=== PATIENT | male | born 1965 | race Caucasian/White ===

== ENCOUNTER 2020-01-24 11:06 | Outpatient (RCR) | payer OTHER, SELFPAY ==
[2020-01-24 11:30] VITALS: BP 144/99; PULSE 81; RESP 16; O2SAT 99; BMI 22.4
== END 2020-02-07 08:00 | disposition home or self-care (01) ==
PROVIDERS: PCP Family Medicine
DX: Z95.2 Presence of prosthetic heart valve (principal)
CPT/HCPCS: 93798

== ENCOUNTER 2020-04-27 16:05 | Outpatient (RCR) | payer OTHER, SELFPAY ==
[2020-02-02 13:26] LABS: INR 2.3; Prothrombin Time 22.9 Seconds (9.64-11.0)
[2020-02-09 16:05] LABS: INR 1.8; Prothrombin Time 18.3 Seconds (9.64-11.0)
[2020-02-16 16:02] LABS: INR 2.4; Prothrombin Time 24.5 Seconds (9.64-11.0)
[2020-03-24 15:59] LABS: INR 2.5; Prothrombin Time 25.5 Seconds (9.64-11.0)
[2020-04-27 16:30] LABS: INR 2.7; Prothrombin Time 27.2 Seconds (9.64-11.0)
== END 2020-05-02 23:59 | disposition home or self-care (01) ==
LOC: CHSLAB 16:05
PROVIDERS: PCP Family Medicine; Visit Provider Nurse Practitioner
DX: Z79.01 Long term (current) use of anticoagulants (principal)
CPT/HCPCS: 36415; 85610

== ENCOUNTER 2020-06-15 16:13 | Outpatient (RCR) | payer OTHER, SELFPAY ==
[2020-05-30 16:37] LABS: INR 1.9; Prothrombin Time 20.3 Seconds (9.50-12.10)
[2020-06-15 19:32] LABS: INR 1.7; Prothrombin Time 18.6 Seconds (9.50-12.10)
== END 2020-08-28 23:59 | disposition home or self-care (01) ==
LOC: CHSLAB 16:13
PROVIDERS: PCP Family Medicine; Visit Provider Nurse Practitioner
DX: Z79.01 Long term (current) use of anticoagulants (principal)
CPT/HCPCS: 36415; 85610

== ENCOUNTER 2020-08-23 16:02 | Outpatient (RCR) | payer OTHER, SELFPAY ==
[2020-07-01 17:33] LABS: INR 2.2; Prothrombin Time 22.9 Seconds (9.50-12.10)
[2020-07-17 15:53] LABS: INR 2.9; Prothrombin Time 30.6 Seconds (9.50-12.10)
[2020-08-23 16:21] LABS: INR 2.6; Prothrombin Time 26.1 Seconds (9.50-12.10)
== END 2020-09-29 23:59 | disposition home or self-care (01) ==
LOC: CHSLAB 16:02
PROVIDERS: PCP Nurse Practitioner; Visit Provider Nurse Practitioner
DX: Z79.01 Long term (current) use of anticoagulants (principal)
CPT/HCPCS: 36415; 85610

== ENCOUNTER 2020-12-22 11:40 | Outpatient (RCR) | payer OTHER, SELFPAY ==
[2020-10-02 13:39] LABS: INR 3.3; Prothrombin Time 32.9 Seconds (9.50-12.10)
[2020-11-13 16:24] LABS: INR 2.6; Prothrombin Time 26.7 Seconds (9.50-12.10)
[2020-12-22 12:12] LABS: INR 2.7; Prothrombin Time 27.3 Seconds (9.50-12.10)
== END 2020-12-31 23:59 | disposition home or self-care (01) ==
LOC: CHSLAB 11:40
PROVIDERS: PCP Family Medicine; Visit Provider Nurse Practitioner
DX: Z79.01 Long term (current) use of anticoagulants (principal)
CPT/HCPCS: 36415; 85610

== ENCOUNTER 2021-02-19 17:52 | Outpatient (RCR) | payer OTHER, SELFPAY ==
[2021-01-18 14:37] LABS: INR 2.6; Prothrombin Time 26.4 Seconds (9.50-12.10)
[2021-02-19 18:16] LABS: Prothrombin Time 30.3 Seconds (9.50-12.10)
== END 2021-04-18 23:59 | disposition home or self-care (01) ==
LOC: CHSLAB 17:52
PROVIDERS: PCP Nurse Practitioner; Visit Provider Nurse Practitioner
DX: Z79.01 Long term (current) use of anticoagulants (principal)
CPT/HCPCS: 36415; 85610

== ENCOUNTER 2021-06-14 13:18 | Outpatient (RCR) | payer OTHER, SELFPAY ==
--- NOTE | 2021-06-14 15:11 | PTOPEVAL ---
Thank you for referring Russ Lugo to [facility] [place][Note 2]. Please review, sign, date and return this plan of care RA. I agree with and certify that the following plan of care is medically necessary. 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 reports that he has been Query Text:As Reported By Patient/ performing a HEP for years. Family He report that his program has since become easy and is looking for suggestions on how to advance his current HEP to improve strength and the l.e. Prior Level of Function Activity Level (Last 3 Months) Occupation teacher Hand Dominance Right Activity of Daily Living Ability Independent Indoor/Home Mobility Independent Community Mobility Independent Stairs Ability Independent Functional Cognition (Planning, Shopping Independent , Taking Medications) Cooking Yes Cleaning Yes Laundry Yes Shopping Yes Driving Yes Pain Assessment Self Report Self Report Pain Level 0 Pain Score Pain Score 0: Self Report Interventions Used Interventions Used By Clinicians Activity or ADL's,Exercise Lower Extremity Range of Motion General Lower Extremity Range of Motion Gross Lower Extremity Range of Motion -right ankle dorsiflexion AROM Comments -10 degrees -right ankle dorsiflexion PROM -5 degrees -left ankle dorsiflexion AROM -3 degrees -left ankle dorsiflexion PROM 2 degrees -right ankle inversion AROM 29 degrees -left ankle inversion AROM 35 degrees -left ankle eversion AROM -5 degrees -right ankle eversion AROM -3 degrees Lower Extremity Muscle Strength Testing Hip Strength
== END 2021-06-14 13:59 | disposition home or self-care (01) ==
LOC: CHSPT 13:18
PROVIDERS: Visit Provider Nurse Practitioner
DX: M30.1 Polyarteritis with lung involvement [Churg-Strauss] (principal)
CPT/HCPCS: 97110; 97161

== ENCOUNTER 2021-06-19 16:32 | Outpatient (RCR) | payer OTHER, SELFPAY ==
[2021-04-20 14:17] LABS: INR 3.5; Prothrombin Time 35.1 Seconds (9.50-12.10)
[2021-05-01 17:31] LABS: INR 2.5; Prothrombin Time 25.2 Seconds (9.50-12.10)
[2021-05-23 13:34] LABS: INR 2.8; Prothrombin Time 28.2 Seconds (9.50-12.10)
[2021-06-08 16:25] LABS: INR 2.2; Prothrombin Time 22.4 Seconds (9.50-12.10)
[2021-06-19 16:56] LABS: INR 2.8; Prothrombin Time 28.8 Seconds (9.50-12.10)
== END 2021-07-19 23:59 | disposition home or self-care (01) ==
LOC: CHSLAB 16:32
PROVIDERS: PCP Family Medicine; Visit Provider Nurse Practitioner
DX: Z79.01 Long term (current) use of anticoagulants (principal)
CPT/HCPCS: 36415; 85610

== ENCOUNTER → 2021-07-16 11:25 | Outpatient (CLI) | payer OTHER, SELFPAY ==
--- NOTE | ~2021-07-16 | CT_ITS ---
EXAMINATION:CT diagnostic chest wo con DATE: 07/16/2021 11:41 INDICATION: Shortness breath. Wheezing. TECHNIQUE: Computed tomography (CT) of the chest was performed without intravenous contrast. Automate d exposure control and iterative reconstruction technique were employed. The dose-length product (DLP ) was 293.37 mGy-cm. COMPARISON: None. FINDINGS: The lungs demonstrate minimal atelectasis. Motion artifact is noted. A calcified left lung nodule and calcified mediastinal lymph nodes are consistent with old granulomatous disease. No pleura l effusion. The heart size is normal. There are changes of mitral valve replacement. There are stringer ry artery calcifications. No pericardial effusion. Calcifications in the spleen are consistent with o ld granulomatous disease. There is mild thoracic spondylosis and severe cervical spondylosis. IMPRESSION: 1. No etiology for the patient's symptoms. Reviewed, dictated and finalized at location A. TIC SURGERY ASSISTANT
== END ==
PROVIDERS: PCP Family Medicine; Visit Provider Family Medicine
DX: R06.2 Wheezing (principal)
CPT/HCPCS: 71250

== ENCOUNTER 2021-10-23 15:59 | Outpatient (RCR) | payer OTHER, SELFPAY ==
--- NOTE | 2021-10-23 17:03 | PTOPEVAL ---
Thank you for referring Russ Lugo to [facility].? The patient is scheduled to be seen for therapy? __1__x/week for 6 visits. Please review, sign, date and return this plan of care RA. I agree with and certify that the following plan of care is medically necessary. Referring Physician Date Admitting Provider: Attending Provider: Wilber Sandoval Referring Provider: *PT Outpatient Evaluation Start: 10/23/21 16:09 Freq: Status: Active Protocol: Document 10/23/21 16:09 SAMSON (Rec: 10/23/21 16:59 SAMSON [email or web address]) Therapy Assessment Status Assessment Status Assessment Status Evaluation Evaluation Information Problem Diagnosis back pain Onset 07/20/21 Subjective Information Pt. reports that he developed Query Text:As Reported By Patient/ a septic section of his Family verterbrae. He underwent MRI that revealed an abscess in the L5 verterbrae. He underwent surgery to help drain the abscess. He reports that he is feeling better since surgery. He reports that since surgery developed pain on the right side of the low back. He is taking pain medication 3x/day up to 4x/day . He reports that pain is increased with walking and standing. He reports that he can stand for about 30 minutes before having to sit. He states that he could stand for an hour or more before injuring himself. 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 He reports that his goal is to decrease his pain and be able to stand longer. Pain Assessment Timing of Pain Assessment Timing of Pain Assessment Pre-Treatment Pain Scale Pain Scale Used Numeric (1 - 10) Self Report Pain Assessment Lower Back Reported Pain Level 3 Pain Description Aching Pain Score Pain Score 3: Self Report Interventions Used Interventions Used By Clinicians Exercise Cervical and Lumbar ROM Lumbar ROM Lumbar Flexion Active Floor Query Text:Hands to: Lumbar Extension (0-40) 5 Query Text:Active i
== END 2021-12-04 10:05 | disposition home or self-care (01) ==
LOC: CHSPT 15:59
PROVIDERS: PCP Family Medicine
DX: M54.16 Radiculopathy, lumbar region (principal)
CPT/HCPCS: 97110; 97112; 97161; 97530

== ENCOUNTER 2022-05-07 11:07 | Outpatient (RCR) | payer OTHER, SELFPAY ==
--- NOTE | 2022-05-07 13:33 | PTOPEVAL1 ---
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 she reports overall the strength is getting better in both legs, but has weakness in the L ankle causing the foot to turn inward. he reports however, the drop foot is work on the R LE . he uses GRAFO braces bilaterally. the shoes the patient wears daily is customized on the L LE to provide a better lateral block of the L ankle to prevent further weakening and rolling of thomas ankle . Reported Pain Level Pain Score 2: Self Report Assessment PT Clinical Summary mr. harding is a 56 yo man who presents to skilled PT services for evaluation and treatment of weakness in the bilateral ankles. he presents with greater weakness in the L IV and the R DF. he would do well to attend skilled PT to improve his ankle strength to improve stability to decrease strain on the lateral ankle and knee during standing and ambulation. Plan of Care Interventions Electrical Stimulation,Gait Training,Neuro Re- education,Patient/Caregiver Educati,Therapeutic Activities,Therapeutic Exercise PT Services Indicated Yes Treatment Frequency and 2x weekly for 8 visits Duration These treatments will address the objective and functional deficits as defined above. The patient will be advanced safely and appropriately in order for the patient to progress towards his/her prior level of function. Additional exercises will be introduced and as well as a comprehensive home exercise program upon discharge, if needed, ?to ensure carryover of functional gains achieved in the clinic. This treatment plan has been reviewed and agreement upon by the patient.
--- NOTE | 2022-06-19 13:34 | PTOPDC ---
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 He has a lot of soreness today from moving into his new house so he would like to get out early. He reports that they did end up getting his braces fixed. His biggest complaint at this point is still feeling like his foot is rubbing up against his shoe. He is happy with his progress with PT so far and is comfortable discharging to [facility] at this time. Reported Pain Level Pain Score 0: Self Report Assessment PT Clinical Summary Pt presents to PT with significant improvements in quality of life and pain since his initial evaluation. He demonstrates improvements in strength and range of motion since his initial evaluation and also demonstrates improvements in functional gait pattern. He was educated on continuing his HEP and current activity level to further improve/maintain his benefits from PT. He is to follow-up with our clinic and his MD should his functional status change.
== END 2022-06-19 14:23 | disposition home or self-care (01) ==
LOC: CHSPT 11:07
DX: M30.1 Polyarteritis with lung involvement [Churg-Strauss] (principal); D72.18 Eosinophilia in diseases classified elsewhere; I77.6 Arteritis, unspecified; G63 Polyneuropathy in diseases classified elsewhere; G57.93 Unspecified mononeuropathy of bilateral lower limbs; M21.371 Foot drop, right foot; M21.372 Foot drop, left foot
CPT/HCPCS: 97110; 97112; 97161